=== PATIENT | female | born 1970 | race Caucasian/White ===

== ENCOUNTER 2024-01-14 07:14 | Emergency (ER) | payer SELFPAY ==
--- NOTE | ~2024-01-14 | US_ITS ---
BILATERAL LOWER EXTREMITY VENOUS ULTRASOUND Ordering provider: Johan Asher MD History: . Bilateral leg swelling left greater than the rig . Comparison: None. FINDINGS: RIGHT LOWER EXTREMITY VEINS: --COMMON FEMORAL: Patent and free of thrombus. Normal compressibility, phasic flow and augmentation. --PROXIMAL SUPERFICIAL FEMORAL: Patent and free of thrombus. Normal compressibility, phasic flow and augmentation. --DISTAL SUPERFICIAL FEMORAL: Patent and free of thrombus. Normal compressibility, phasic flow and au gmentation. --POPLITEAL: Patent and free of thrombus. Normal compressibility, phasic flow and augmentation. --POSTERIOR TIBIAL: Patent and free of thrombus. Normal compressibility, phasic flow and augmentation . LEFT LOWER EXTREMITY VEINS: --COMMON FEMORAL: Patent and free of thrombus. Normal compressibility, phasic flow and augmentation. --PROXIMAL SUPERFICIAL FEMORAL: Patent and free of thrombus. Normal compressibility, phasic flow and augmentation. --DISTAL SUPERFICIAL FEMORAL: Patent and free of thrombus. Normal compressibility, phasic flow and au gmentation. --POPLITEAL: Patent and free of thrombus. Normal compressibility, phasic flow and augmentation. --POSTERIOR TIBIAL: Patent and free of thrombus. Normal compressibility, phasic flow and augmentation . Edema seen in the calfs. IMPRESSION: Negative bilateral lower extremity venous US. No deep vein thrombosis. Reviewed, dictated and finalized at location A.
[2024-01-14 07:20] VITALS: BP 139/105; PULSE 102; RESP 24; TEMP 36.6; O2SAT 98
--- NOTE | 2024-01-14 07:25 | ED.PSYCH ---
HPI - Psych General Stated Complaint: Panic Attack Time Seen by Provider: 01/14/24 07:22 Course Vital Signs Vital signs: Vital Signs Temperature 36.6 C 01/14/24 07:20 Pulse Rate 102 H 01/14/24 07:20 Respiratory Rate 24 H 01/14/24 07:20 Blood Pressure 139/105 H 01/14/24 07:20 Pulse Oximetry 98 01/14/24 07:20 Oxygen Delivery Room Air 01/14/24 07:20 Temperature 36.6 C 01/14/24 07:20 Pulse Rate 102 H 01/14/24 07:20 Respiratory Rate 24 H 01/14/24 07:20 Blood Pressure 139/105 H 01/14/24 07:20 Pulse Oximetry 98 01/14/24 07:20 Oxygen Delivery Room Air 01/14/24 07:20 Discharge Plan Discharge Follow-up/Referrals: UNKNOWN,DOCTOR [Primary Care Provider] -
--- NOTE | 2024-01-14 07:39 | ED.GENADULT ---
HPI - General Adult General Chief complaint: Anxiety Stated complaint: Panic Attack Time Seen by Provider: 01/14/24 07:22 Source: patient Mode of arrival: ambulatory Limitations: no limitations History of Present Illness HPI narrative: 53-year-old female, smoker with a past history of alcohol use, pancreatitis, panic attacks, electrolyte imbalance presents to the ED with a 3 day history of -- bilateral leg swelling left greater than the right -- nausea with 3 episodes of vomiting today. No abdominal pain. No diarrhea. No fever or chills. -- Patient is driving and is on her way to [place] for her mother's . Her car broke down. Onset (ago): day(s) ( 3 days) Location: lower extremity Relieving factors: none Exacerbating factors: none Associated symptoms: weakness Treatments prior to arrival: none Related Data Home Medications Medication Instructions Recorded Confirmed No Home Medications 01/14/24 01/14/24 Allergies Allergy/AdvReac Type Severity Reaction Status Date / Time No Known Allergies Allergy Verified 01/14/24 08:31 Review of Systems Review of Systems: All systems reviewed & are unremarkable except as noted in HPI and below Constitutional: Constitutional: Reports as per HPI, Reports no additional constitutional complaints and Reports weakness Eyes: Eyes: Reports as per HPI and Reports no additional eye complaints ENT: Reports system reviewed and no additional complaints, except as documented and Reports as per HPI Cardiovascular: Cardiovascular: Reports as per HPI and Reports no additional cardiovascular complaints Respiratory: Respiratory: Reports as per HPI and Reports no additional respiratory complaints Gastrointestinal: Gastrointestinal: Reports as per HPI, Reports no additional gastrointestinal complaints, Reports nausea and Reports vomiting Genitourinary: Genitourinary: Reports no additional female genitourinary complaints Musculoskeletal: Musculoskeletal: Reports no additional musculoskeletal complaints and Reports as per HPI Comments: bilateral leg swelling Integumentary/Breasts: Skin/Breast: Reports system reviewed and no additional complaints, except as docu and Reports as per HPI Neurologic: Reports system reviewed and no additional complaints, except as documented and Reports as per HPI Psychiatric: Psychiatric: Reports no additional psychiatric complaints and Reports as per HPI Endocrine: Endocrine: Reports no additional endocrine complaints and Reports as per HPI Hematologic/Lymphatic: Hematologic/Lymphatic: Reports no additional hematologic/lymphatic complaints and Reports as per HPI Allergic/Immunologic: Allergic/Immunologic: Reports no additional allergic/immunologic complaints and Reports as per HPI [facility] Past Medical History Medical History (Updated 01/14/24 @ 09:11 by Johan Asher MD) Pancreatitis Family History Family History (Updated 01/14/24 @ 07:43 by Johan Asher MD) Other DVT (deep venous thrombosis) Social History Social History (Updated 01/14/24 @ 07:43 by Johan Asher MD) Social History: smoker Exam Narrative: blood pressure 139/105 with a heart rate of 102. Afebrile. Const: General: no acute distress Orientation/consciousness: patient oriented x3 Limitations: no limitations HENMT: Head: normal to inspection Ears: external ears normal Face/Nose/Sinus: Normal external nose present Face and sinus: normal facial exam Mouth: Yes Normal oral and palatal mucosa present Throat: posterior oropharynx normal Eyes: Conjunctivae: conjunctivae normal Pupils: Equal, round and reactive pupils present EOM: EOMs intact bilaterally Direct Ophthalmoscopy: no photophobia Neck: Neck: normal visual inspection and no lymphadenopathy Chest: Chest palpation & inspection: normal inspection of the chest Resp: Effort & Inspection: normal respiratory effort Auscultation: clear to auscultation bilaterally Cardio
--- NOTE | 2024-01-14 07:45 | ECG_ITS ---
Test Date: 2024-01-14 08:32:32 Measurements Intervals Savage Rate: 99 P: 53 DC: 149 QRS: 51 QRSD: 89 T: 53 QT: 377 QTc: 486 Interpretive Statements SINUS RHYTHM PROBABLE INFERIOR MYOCARDIAL INFARCTION , PROBABLY OLD [35 ms Q WAVE IN II/aVF] NONSPECIFIC ST AND T WAVE ABNORMALITY ABNORMAL ECG No previous ECG available for comparison Electronically Signed On 01-14-2024 10:51:28 CDT by Wade Cervantes M.D.
[2024-01-14 07:55] LABS: Add Urine Microscopic? YES; Appearance Urine Clear (Clear); Bilirubin Urine Negative (Negative); Blood Urine Negative (Negative); Color Urine Yellow (Yellow); Glucose Urine UA Negative (Negative); Ketones Urine 1+ (Negative); Leukocyte Esterase Ur Trace LEU/UL (Negative); Nitrate Urine Negative (Negative); Protein Urine Trace (Negative); Specific Grav Ur 1.015 (1.010-1.020); Urobilinogen Urine 0.2 mg/dL (0.2-1.0)
[2024-01-14 07:59] LABS: RBC Urine None seen /hpf (0-2); Squamous Epithelial Cell Urine Few /hpf (Few); WBC Urine None seen /hpf (0-3)
[2024-01-14 08:00] LABS: Bacteria Urine Trace /hpf
[2024-01-14 08:29] LABS: Basophils Absolute Auto 0.06 K/mm3 (0.00-0.10); Basophils Percent Auto 0.4 % (0.0-1.0); Eosinophils Absolute Auto 0.04 K/mm3 (0.02-0.50); Eosinophils Percent Auto 0.3 % (1.0-6.0); Hematocrit 34.6 % (35.0-49.0); Hemoglobin 12.4 g/dL (12.0-15.0); Immature Granulocyte Absolute 0.05 K/mm3 (0.00-0.00); Immature Granulocyte Percent A 0.4 % (0.0-0.0); Lymphocytes Absolute Auto 2.52 K/mm3 (1.10-4.50); Lymphocytes Percent Auto 18.8 % (18.0-42.0); Mean Corpuscular HGB Conc 35.8 g/dL (32-36); Mean Corpuscular Hemoglobin 39.7 pg (27.0-31.0); Mean Corpuscular Volume 110.9 fL (78.0-102.0); Mean Platelet Volume 8.8 fl (9.2-11.8); Monocytes Absolute Auto 0.52 K/mm3 (0.10-0.90); Monocytes Percent Auto 3.9 % (2.0-11.0); Neutrophils Absolute Auto 10.21 K/mm3 (1.70-7.20); Neutrophils Percent Auto 76.2 % (50.0-70.0); Platelet Count Result 206 K/mm3 (150-420); Red Blood Count 3.12 M/mm3 (4.20-5.40); Red Cell Distribution Width 21.2 % (11.6-14.4); White Blood Count 13.4 K/mm3 (4.8-10.8)
--- NOTE | 2024-01-14 08:37 | PC.NURSE ---
PT IS AWAITING RESULTS AT THIS TIME. PT HAS RETURNED FROM US AND DECLINES ANY NEEDS OR COMPLAINTS. PT DECLINES BLANKET AT THIS TIME. NAD NOTED. WILL CONTINUE TO MONITOR.
[2024-01-14 08:46] LABS: Partial Thromboplastin Time 26.1 Sec (23.9-30.70); Prothrombin Time 11.1 Seconds (9.50-12.1)
[2024-01-14 08:49] LABS: D Dimer 0.67 mg/L (0.19-0.50)
[2024-01-14 08:54] LABS: Alanine Aminotransferase 65 U/L (14-59); Albumin Level 3.2 g/dL (3.4-5.0); Alkaline Phosphatase 116 U/L (46-116); Anion Gap 12 mmol/L (4-12); Aspartate Amino Transferase 124 U/L (15-37); Bilirubin,Total 1.1 mg/dL (0.00-1.00); Blood Urea Nitrogen 7 mg/dL (7-18); Calcium 9.2 mg/dL (8.5-10.1); Carbon Dioxide 28 mmol/L (21-32); Chloride 97 mmol/L (98-108); Estimated CRCL calculation 115 ml/min; Estimated Glomerular Filt Rate > 60; Glucose 99 mg/dL (70-99); Lipase 16 U/L (16-77); NT Pro B Type Natriuretic Pept 262 pg/mL (0-125); Osmolality Calculated 282 mOsm/kg (285-295); Sodium 137 mmol/L (136-145); Thyroid Stimulating Hormone 4.52 uIU/mL (0.36-3.74); Total Protein 7.2 g/dL (6.4-8.2); Troponin I 5.3 ng/L (0.00-60.4)
[2024-01-14 08:56] LABS: Lactic Acid Reflex 1.9 mmol/L (0.4-2.0)
--- NOTE | 2024-01-14 09:01 | PC.NURSE ---
PT IS CONCERNED ABOUT VEHICLE STATUS, GOES OUTSIDE TO CHECK ON VEHICLE. IS SMOKING IN PARKING LOT. PT RETURNS AND AMBULATES TO WITHOUT DIFFICULTY.
[2024-01-14] MEDS: ALPRAZolam (*CRX) 0.5 MG TABLET PO (09:26)
--- NOTE | 2024-01-14 09:28 | PC.NURSE ---
PT IS REQUESTING IMODIUM, REPORTING SHE HAS WATERY DIARRHEA, ERP HAS BEEN NOTIFIED. PT IS EATING SANDWICH TRAY AT THIS TIME. PT REFUSES POTASSIUM. PT IS AWAITING CARE COORDINATION AT THIS TIME, JUSTIN HAS BEEN NOTIFIED. WILL CONTINUE TO MONITOR.
[2024-01-14] MEDS: LOPERAMIDE HCL 2 MG CAPSULE 4 MG PO (09:34)
--- NOTE | 2024-01-14 09:39 | PC.NURSE ---
PT IS UPSET, STATES SHE HAS NO WAY TO GET HER BROKEN DOWN CAR OUT OF THE PARKING LOT, THE TAGS HAVE BEEN FOR 2 YEARS, SHE DOES NOT WORK, HAS NO FAMILY, AND NEEDS TO GET TO [place] BY THIS WEEKEND. PT LEAVES THE ER STATING THE MARINE PIPEFITTER HELPER IS NOT GOING TO BE ABLE TO HELP HER EITHER.
== END 2024-01-14 09:40 | disposition home or self-care (01) ==
PROVIDERS: Emergency Provider Internal Medicine Critical Care Medicine
DX: F41.9 Anxiety disorder, unspecified (principal); M79.89 Other specified soft tissue disorders; E87.6 Hypokalemia
CPT/HCPCS: 36415; 80053; 81001; 83605; 83690; 83880; 84443; 84484; 85025; 85380; 85610; 85730; 93005; 93970; 99284; A9270